=== PATIENT | male | born 1995 | race Caucasian/White ===

== ENCOUNTER 2024-09-22 06:36 | Inpatient (IN) | payer BC, OTHER ==
[~2024-09-22] VITALS: Ht 182.9 cm; Wt 68.0 kg
--- NOTE | 2024-09-22 06:59 | ED.PDOC ---
History of Present Illness HPI Comments 29-year-old male came to the ER stating that he has been having nausea vomiting for the past few days unable to tolerate any liquids or solid food. History of insulin dependent diabetes. He states that his pump has been not working for the past three days. Heart rate on arrival was 120 blood sugar 480. Other than diabetes a denies any other past medical history. Chief Complaint: Hyperglycemia Time Seen by MD: 06:55 Reviewed Notes: Nurses Notes, Medications, Allergies Allergies: Coded Allergies: Latex (Verified Allergy, Unknown, 09/22/24) Information Source: Patient Mode of Arrival: Wheelchair Severity: Moderate Timing: Days Duration: Since onset Past Medical History PAST MEDICAL HISTORY: DM Surgical History: Denies all surgeries Social History Smoker: Non-Smoker Alcohol: Denies ETOH Use Drugs: Denies Drug Use Constitutional: denies: chills, diaphoresis, fatigue, fever, malaise, sweats, weakness, others EENTM: denies: blurred vision, double vision, ear bleeding, ear discharge, ear drainage, ear pain, ear ringing, eye pain, eye redness, hearing loss, mouth pain, mouth swelling, nasal discharge, nose bleeding, nose congestion, nose pain, photophobia, tearing, throat pain, throat swelling, voice changes, others Cardiovascular: denies: chest pain, dizzy spells, diaphoresis, Dyspnea on exertion, edema, irregular heart beat, left arm pain, lightheadedness, palpitations, PND, syncope, others Gastrointestinal: reports: nausea, vomiting; denies: abdomen distended, abdominal pain, blood streaked bowels, constipated, diarrhea, dysphagia, difficulty swallowing, hematemesis, melena, poor appetite, poor fluid intake, rectal bleeding, rectal pain, others Genitourinary: denies: burning, dysuria, flank pain, frequency, hematuria, incontinence, penile discharge, penile sore, pain, testicle pain, testicle swelling, urgency, others Neurological: denies: dizziness, fainting, headache, left sided numbness, left sided weakness, numbness, paresthesia, pre-existing deficit, right sided numbness, right sided weakness, seizure, speech problems, tingling, tremors, weakness, others Musculoskeletal: denies: back pain, gout, joint pain, joint swelling, muscle pain, muscle stiffness, neck pain, others Integumetry: denies: bruises, change in color, change in hair/nails, dryness, laceration, lesions, lumps, rash, wounds, others Allergic/Immunocompromised: denies: Difficulty Healing, Frequent Infections, Hives, Itching, others Hematologic/Lymphatic: denies: anemia, blood clots, easy bleeding, easy br uising, swollen glands, others Endocrine: denies: excessive hunger, excessive sweating, excessive thirst, excessive urination, flushing, intolerance to cold, intolerance to heat, unexplained weight gain, unexplained weight loss, others Psychiatric: denies: anxiety, bipolar disorder, depression, hopeless, panic disorder, schizophrenia, sleepless, suicidal, others Physical Exam General Appearance: Moderate Distress HEENT: Normal ENT Inspection, Pharynx Normal, TMs Normal Neck: Full Range of Motion, Non-Tender, Normal, Normal Inspection Respiratory: Chest Non-Tender, Lungs Clear, No Accessory Muscle Use, No Respiratory Distress, Normal Breath Sounds Cardiovascular: Tachycardia Breast Exam: Deferred Gastrointestinal: No Organomegaly, Non Tender, No Pulsatile Mass, Normal Bowel Sounds, Soft Genitalia: Deferred Pelvic: Deferred Rectal: Deferred Extremities: No calf tenderness, Normal capillary refill, Normal inspection, Normal range of motion, Non-tender, No pedal edema Musculoskeletal : Apperance: Normal 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 Was a procedure done?: No Differential Dx Considerations may include: DKA Electrolyte imbalance X-Ray, Labs, Meds, VS Vital Signs Date Time Temp Pulse Resp B/P (MAP) Pulse Ox O2 Delivery O2 Flow Rate FiO2 09/22/24 09:15 114 133/81 (98) 100 09/22/24 06:45 97.6 129 28 145/81 97 97.6 Lab Test 09/22/24 07:24 Range/Units White Blood Count 12.2 H 4.4-10.8 10^3/uL Red Blood Count 5.69 4.5-5.90 10^6/uL Hemoglobin 17.2 13.5-17.5 g/dL Hematocrit 51.8 41.0-53.0 % Mean Corpuscular Volume 90.9 80.0-100.0 fL Mean Corpuscular Hemoglobin 30.2 28.0-32.0 pg Mean Corpuscular Hemoglobin Concent 33.2 32.0-36.0 g/dL Red Cell Distribution Width 14.3 11.8-14.3 % Platelet Count 320 140-450 10^3/uL Mean Platelet Volume 9.0 6.9-10.8 fL Neutrophils (%) (Auto) 86.7 H 37.0-80.0 % Lymphocytes (%) (Auto) 7.9 L 10.0-50.0 % Monocytes (%) (Auto) 4.4 0.0-12.0 % Eosinophils (%) (Auto) 0.0 0.0-7.0 % Basophils (%) (Auto) 1.0 0.0-2.0 % Neutrophils # (Auto) 10.6 H 1.6-8.6 10 ^3/uL Lymphocytes # (Auto) 1.0 0.4-5.4 10 ^3/uL Monocytes # (Auto) 0.5 0-1.3 10 ^3/uL Eosinophils # (Auto) 0 0-0.8 10 ^3/uL Basophils # (Auto) 0.1 0-0.2 10 ^3/uL Nucleated Red Blood Cells 0.0 % Sodium Level 129 L 136-145 mmol/L Potassium Level 5.3 H 3.5-5.1 mmol/L Chloride Level 93 L 98-107 mmol/L Carbon Dioxide Level < 10 *L 20-31 mmol/L Anion Gap 26.74291 H 5-15 Blood Urea Nitrogen 22 9-23 mg/dL Creatinine 2.03 H 0.700-1.30 mg/dL Glomerular Filtration Rate Calc 45 >90 mL/min BUN/Creatinine Ratio 10.8 10.0-20.0 Serum Glucose 514 *H 74-106 mg/dL Serum Osmolality 331 H 278-298 mOsm/kg Calcium Level 9.5 8.7-10.4 mg/dL Phosphorus Level 5.1 2.4-5.1 mg/dL Magnesium Level 2.3 1.6-2.6 mg/dL Beta-Hydroxybutyric Acid > 4.500 H < 0.4 mmol/L Current Medications Medications (Trade) Dose Ordered Sig/Ramses Route Start Time Stop Time Status Last Admin Sodium Chloride 1,000 ml @ 1,000 mls/hr Q1H ONCE IV 09/22/24 07:00 09/22/24 07:59 DC 09/22/24 07:19 Sodium Chloride 1,000 ml @ 150 mls/hr Q6H40M ONCE IV 09/22/24 07:00 09/22/24 13:39 09/22/24 07:31 Insulin Human (Reg)/Sodium Chloride 100 ml @ 0.5 mls/hr Q24H IV 09/22/24 07:00 09/22/24 09:14 Diagnostic Test (Pha) (Accu-Chek Comfort Curve T) 1 strip Q90MIN 09/22/24 07:30 09/22/24 09:14 Insulin Glargine (Lantus) 15 units ONCE ONCE SC 09/22/24 07:00 09/22/24 07:01 DC 09/22/24 07:26 Ondansetron HCl (Zofran) 4 mg ONCE ONCE IV 09/22/24 07:00 09/22/24 07:01 DC 09/22/24 07:16 Patient alert. Tachycardic. Saturation pristine on room air. Possible DKA. Establish intravenous access. Was given fluids. Was given insulin. Explained to the family. Continue monitoring. Time of 1ST Reevaluation: 06:58 Reevaluation 1ST: Unchanged Patient Education/Counseling: Diagnosis, Treatment, Prognosis, Need For Follow Up Family Education/Counseling: Need For Follow Up SEPSIS Sepsis Screen Date sepsis recognized/suspect: Sep 22, 2024 Time Sepsis recognized/suspect: 0653 Recent Procedure: No On Antibiotic Therapy: No Respiratory Rate >20: No Heart Rate >90: Yes Temp<36 C (96.8 F) or >38.3 C: No SBP <90 or MAP <65 mmHG: No New Acute Mental Status Change: No Is the patient on CPAP, BIPAP,: No Physician Orders Sodium Chloride 0.9% (09/22/24 07:00) Insulin Drip Protocol (09/22/24 ) Sodium Chloride 0.9% (09/22/24 07:00) Sodium Chloride 0.9% (09/22/24 11:00) Sodium Chloride 0.9% (09/22/24 13:00) Insulin Drip 100 Unit/100ml (Myxredlin 1 (09/22/24 07:00) Dextrose 50% Syringe (09/22/24 07:00) Glucose Blood (Accu-Chek Comfort Curve T (09/22/24 07:30) Abg W/ Co-Ox (09/22/24 06:55) Basic Metabolic Panel (09/22/24 12:55) Basic Metabolic Panel (09/22/24 18:55) Basic Metabolic Panel (09/23/24 00:55) Urinalysis (09/22/24 06:55) Neurological Assessment (09/22/24 06:55) Vs/Hemodynamics .PER UNIT PROTOCOL (09/22/24 06:55) Insulin Lantus (Glargine) (Lantus) (09/23/24 10:00) Vital Signs Date Time Temp Pulse Resp B/P (MAP) Pulse Ox O2 Delivery O2 Flow Rate FiO2 09/22/24 09:15 114 133/81 (98) 100 09/22/24 06:45 97.6 129 28 145/81 97 97.6 Laboratory Tests Test 09/22/24 07:24 White Blood Count 12.2 10^3/uL (4.4-10.8) H Medications Medications Dose Ordered Sig/Ramses Route Start Time Stop Time Status Last Admin Dose Admin Diagnostic Test (Pha) 1 strip Q90MIN 09/22/24 07:30 09/22/24 09:14 Insulin Glargine 15 units ONCE ONCE SC 09/22/24 07:00 09/22/24 07:01 DC 09/22/24 07:26 Insulin Human (Reg)/Sodium Chloride 100 ml @ 0.5 mls/hr Q24H IV 09/22/24 07:00 09/22/24 09:14 Ondansetron HCl 4 mg ONCE ONCE IV 09/22/24 07:00 09/22/24 07:01 DC 09/22/24 07:16 Sodium Chloride 1,000 ml @ 150 mls/hr Q6H40M ONCE IV 09/22/24 07:00 09/22/24 13:39 09/22/24 07:31 Sodium Chloride 1,000 ml @ 1,000 mls/hr Q1H ONCE IV 09/22/24 07:00 09/22/24 07:59 DC 09/22/24 07:19 Departure 1 Departure Time of Disposition: 06:59 Impression: Primary Impression: DKA (diabetic ketoacidosis) Qualified Codes: E13.10 - Other specified diabetes mellitus with ketoacidosis without coma Disposition: ADMITTED INPATIENT Admit to: Med Surg Condition: Guarded Critical Care Note Critical Care Time?: Yes (90 min-critical care time only) Stability Stability form required: No Heart Score Heart Score: Heart Score Response (Comments) Value History N/A 0 EKG N/A 0 Age N/A 0 Risk Factors N/A 0 Troponin N/A 0 Total 0 UZAIR ADAME MD Sep 22, 2024 06:59
[2024-09-22] MEDS ORDERED: DEXTROSE (50%) 50ML SYRG IV PRN ×2 (07:00→21:30)
[2024-09-22] MEDS: ONDANSETRON HCL 4 MG/2 ML VIAL IV ONE (07:16)
[2024-09-22] MEDS: SODIUM CHLORIDE 0.9% 1,000 ML IV ONE ×3 (07:19→14:32)
[2024-09-22] MEDS: INSULIN LANTUS (GLARGINE) 1 /0.01ml (100units/ml) SC ONE (07:26)
[2024-09-22] MEDS: ACCU-CHEK COMFORT CURVE STRIP VI SCH (07:30)
[2024-09-22 07:35] LABS: Hematocrit 51.8 % (41.0-53.0); Hemoglobin 17.2 g/dL (13.5-17.5); Mean Corpuscular Hemoglobin 30.2 pg (28.0-32.0); Mean Corpuscular Volume 90.9 fL (80.0-100.0); Nucleated Red Blood Cells % 0.0 %
[2024-09-22 07:45] LABS: Anion Gap 26.00001 (5-15)
[2024-09-22 07:46] LABS: Calcium 9.5 mg/dL (8.7-10.4)
[2024-09-22 07:51] LABS: BUN/Creatinine Ratio 10.8 (10.0-20.0); Blood Urea Nitrogen 22 mg/dL (9-23); Chloride 93 mmol/L (98-107); Magnesium 2.3 mg/dL (1.6-2.6); Potassium 5.3 mmol/L (3.5-5.1); Sodium 129 mmol/L (136-145)
[2024-09-22 07:52] LABS: Carbon Dioxide < 10 mmol/L (20-31); Glucose 514 mg/dL (74-106)
[2024-09-22] MEDS: INSULIN DRIP 100 UNIT/100ML 100 ML IV SCH (09:14)
[2024-09-22] MEDS: SODIUM CHLORIDE 0.9% 1,000 ML IV SCH ×3 (09:54→13:00)
[2024-09-22] MEDS ORDERED: NITROGLYCERIN 0.4 MG SL TAB SL PRN (13:30)
[2024-09-22] MEDS ORDERED: MORPHINE SULFATE INJ 2 MG/ml SYRG IV PRN ×2 (13:30)
[2024-09-22] MEDS ORDERED: ACETAMINOPHEN 325 MG TAB PO PRN (13:30)
[2024-09-22] MEDS ORDERED: DOCUSATE SOD 100 MG CAP PO PRN (13:30)
[2024-09-22] MEDS ORDERED: HYDROcodone-ACET 5/325MG TAB PO PRN (13:30)
[2024-09-22] MEDS ORDERED: ONDANSETRON HCL 4 MG/2 ML VIAL IV PRN (13:30)
[2024-09-22 13:50] LABS: Chloride 101 mmol/L (98-107); Potassium 4.4 mmol/L (3.5-5.1)
[2024-09-22 13:51] LABS: Anion Gap 22.00001 (5-15); Calcium 8.7 mg/dL (8.7-10.4)
[2024-09-22 13:56] LABS: BUN/Creatinine Ratio 12.1 (10.0-20.0); Blood Urea Nitrogen 20 mg/dL (9-23)
[2024-09-22 13:57] LABS: Carbon Dioxide < 10 mmol/L (20-31); Glucose 227 mg/dL (74-106); Sodium 133 mmol/L (136-145)
--- NOTE | 2024-09-22 14:00 | DVHHP2 ---
History of Present Illness Reason for Visit: Hyperglycemia History of Present Illness Kiley Aceves JR is a 29-year-old male with past medical history of diabetes, who came to the hospital for hyperglycemia. Patient states for the last 3 days he has been having trouble with his insulin pump. He states he moved the site and woke up in the morning with it not working and his blood sugars elevated. He stated this has been happening for the last few days and that his blood sugars have not been well controlled. When completing my assessment he is O x 4, but drowsy and falls asleep while talking and is repetitive at times with answers. Endocrine: Diabetes Past Surgical History: None Smoke: <1 pack per day ([place]) ALCOHOL: occassional Drugs: Marijuana Lives: with Family Domestic Violence: Neg Review of Systems Constitutional: No: Fever, Chills, Sweats, Weakness, Malaise, Other Eyes: No: Pain, Vision change, Conjunctivae inflammation, Eyelid inflammation, Other, Redness ENT: No: Ear pain, Ear discharge, Nose pain, Nose discharge, Nose congestion, Mouth pain, Mouth swelling, Throat pain, Throat swelling, Other Respiratory: No: Cough, Dry, Shortness of breath, SOB with excertion, Wheezing, Hemoptysis, Pleuritic Pain, Sputum, Wheezing, Other Cardiovascular: No: Chest Pain, Palpitations, Orthopnea, Paroxysmal Noc. Dyspnea, Edema, Lt Headedness, Other Gastrointestinal: Nausea, Vomiting, Abdominal Pain; No: Diarrhea, Constipation, Melena, Hematochezia, Other Genitourinary: No Dysuria, No Frequency, No Incontinence, No Hematuria, No Retention, No Other Musculoskeletal: No: other, neck pain, shoulder pain, arm pain, back pain, hand pain, leg pain, foot pain Skin: No: Rash, Lesions, Jaundice, Bruising, Other Neurological: No: Weakness, Numbness, Incoordination, Change in speech, Confusion, Seizures, Other Allergies: Coded Allergies: Latex (Verified Allergy, Unknown, 09/22/24) Medications Current Medications Medications Dose Ordered Sig/Ramses Route Start Time Stop Time Status Last Admin Dose Admin Sodium Chloride 1,000 ml @ 150 mls/hr Q6H40M IV 09/22/24 13:00 Insulin Human (Reg)/Sodium Chloride 100 ml @ 0.5 mls/hr Q24H IV 09/22/24 07:00 09/22/24 09:14 6 MLS/HR Dextrose 50 ml UD PRN IV 09/22/24 07:00 Diagnostic Test (Pha) 1 strip Q90MIN 09/22/24 07:30 09/22/24 12:14 1 STRIP Insulin Glargine 15 units DAILY SC 09/23/24 10:00 Exam Vital Signs Vital Signs Date Time Temp Pulse Resp B/P (MAP) Pulse Ox O2 Delivery O2 Flow Rate FiO2 09/22/24 10:58 Room Air* 0 21 09/22/24 10:00 97.9 116 14 132/74 (93) 100 97.9 General Appearance: Oriented X3, Cooperative, moderate distress, Other (drowsy, slow to respond) HEENT: Atraumatic, PERRLA, Other (Mucous memebr dry) Respiratory: Clear to auscultation, Normal air movement Cardiovascular: Normal S1, Normal S2, Other (SR-ST) Abdominal: Normal bowel sounds, Soft, No tenderness Extremities: No clubbing, No cyanosis, No edema, Normal pulses Skin: No breakdown, No significant lesion Neuro: Normal gait, Normal speech, Strength at 5/5 X4 ext Psych/Mental Status: Mental status NL, Mood NL Labs/Xrays Labs Test 09/22/24 07:24 Range/Units White Blood Count 12.2 H 4.4-10.8 10^3/uL Red Blood Count 5.69 4.5-5.90 10^6/uL Hemoglobin 17.2 13.5-17.5 g/dL Hematocrit 51.8 41.0-53.0 % Mean Corpuscular Volume 90.9 80.0-100.0 fL Mean Corpuscular Hemoglobin 30.2 28.0-32.0 pg Mean Corpuscular Hemoglobin Concent 33.2 32.0-36.0 g/dL Red Cell Distribution Width 14.3 11.8-14.3 % Platelet Count 320 140-450 10^3/uL Mean Platelet Volume 9.0 6.9-10.8 fL Neutrophils (%) (Auto) 86.7 H 37.0-80.0 % Lymphocytes (%) (Auto) 7.9 L 10.0-50.0 % Monocytes (%) (Auto) 4.4 0.0-12.0 % Eosinophils (%) (Auto) 0.0 0.0-7.0 % Basophils (%) (Auto) 1.0 0.0-2.0 % Neutrophils # (Auto) 10.6 H 1.6-8.6 10 ^3/uL Lymphocytes # (Auto) 1.0 0.4-5.4 10 ^3/uL Monocytes # (Auto) 0.5 0-1.3 10 ^3/uL Eosinophils # (Auto) 0 0-0.8 10 ^3/uL Basophils # (Auto) 0.1 0-0.2 10 ^3/uL Nucleated Red Blood Cells 0.0 % Sodium Level 129 L 136-145 mmol/L Potassium Level 5.3 H 3.5-5.1 mmol/L Chloride Level 93 L 98-107 mmol/L Carbon Dioxide Level < 10 *L 20-31 mmol/L Anion Gap 26.29638 H 5-15 Blood Urea Nitrogen 22 9-23 mg/dL Creatinine 2.03 H 0.700-1.30 mg/dL Glomerular Filtration Rate Calc 45 >90 mL/min BUN/Creatinine Ratio 10.8 10.0-20.0 Serum Glucose 514 *H 74-106 mg/dL Serum Osmolality 331 H 278-298 mOsm/kg Calcium Level 9.5 8.7-10.4 mg/dL Phosphorus Level 5.1 2.4-5.1 mg/dL Magnesium Level 2.3 1.6-2.6 mg/dL Beta-Hydroxybutyric Acid > 4.500 H < 0.4 mmol/L SEPSIS Sepsis Screen Date sepsis recognized/suspect: Sep 22, 2024 Time Sepsis recognized/suspect: 0653 Recent Procedure: No On Antibiotic Therapy: No Respiratory Rate >20: No Heart Rate >90: Yes Temp<36 C (96.8 F) or >38.3 C: No SBP <90 or MAP <65 mmHG: No New Acute Mental Status Change: No Is the patient on CPAP, BIPAP,: No Physician Orders Sodium Chloride 0.9% (09/22/24 07:00) Insulin Drip Protocol (09/22/24 ) Sodium Chloride 0.9% (09/22/24 13:00) Insulin Drip 100 Unit/100ml (Myxredlin 1 (09/22/24 07:00) Dextrose 50% Syringe (09/22/24 07:00) Glucose Blood (Accu-Chek Comfort Curve T (09/22/24 07:30) Abg W/ Co-Ox (09/22/24 06:55) Basic Metabolic Panel (09/22/24 18:55) Basic Metabolic Panel (09/23/24 00:55) Urinalysis (09/22/24 06:55) Neurological Assessment (09/22/24 06:55) Vs/Hemodynamics .PER UNIT PROTOCOL (09/22/24 06:55) Insulin Lantus (Glargine) (Lantus) (09/23/24 10:00) Basic Metabolic Panel (09/22/24 12:24) Drug Screen (09/22/24 12:59) Vital Signs Date Time Temp Pulse Resp B/P (MAP) Pulse Ox O2 Delivery O2 Flow Rate FiO2 09/22/24 10:58 Room Air* 0 21 09/22/24 10:00 97.9 116 14 132/74 (93) 100 97.9 09/22/24 09:15 114 133/81 (98) 100 09/22/24 06:45 97.6 129 28 145/81 97 97.6 Laboratory Tests Test 09/22/24 07:24 White Blood Count 12.2 10^3/uL (4.4-10.8) H Medications Medications Dose Ordered Sig/Ramses Route Start Time Stop Time Status Last Admin Dose Admin Diagnostic Test (Pha) 1 strip Q90MIN 09/22/24 07:30 09/22/24 12:14 1 STRIP Insulin Glargine 15 units ONCE ONCE SC 09/22/24 07:00 09/22/24 07:01 DC 09/22/24 07:26 15 UNITS Insulin Human (Reg)/Sodium Chloride 100 ml @ 0.5 mls/hr Q24H IV 09/22/24 07:00 09/22/24 09:14 6 MLS/HR Ondansetron HCl 4 mg ONCE ONCE IV 09/22/24 07:00 09/22/24 07:01 DC 09/22/24 07:16 4 MG Sodium Chloride 1,000 ml @ 150 mls/hr Q6H40M ONCE IV 09/22/24 07:00 09/22/24 13:39 09/22/24 07:31 150 MLS/HR Sodium Chloride 1,000 ml @ 250 mls/hr Q4H IV 09/22/24 11:00 09/22/24 12:59 DC 09/22/24 11:03 250 MLS/HR Sodium Chloride 1,000 ml @ 500 mls/hr Q2H IV 09/22/24 07:00 09/22/24 10:59 DC 09/22/24 09:55 500 MLS/HR Sodium Chloride 1,000 ml @ 1,000 mls/hr Q1H ONCE IV 09/22/24 07:00 09/22/24 07:59 DC 09/22/24 07:19 1,000 MLS/HR Assessment/Plan Assessment/Plan Assessment: DKA (diabetic ketoacidosis), Acute kidney injury, Leukocytosis, Metabolic acidosis, Uncontrolled diabetes, Plan: Admit to ICU, IV insulin drip, IV hydration, UA, UDS, Manage/Monitor electrolytes closely, BMP Q 6 hours, A1c, Plan discussed with: Patient My Orders Orders - MIRIAM URRUTIA Procedure Category Date Status Time Basic Metabolic Panel LAB 09/22/24 Logged 12:24 Drug Screen LAB 09/22/24 Logged 12:59 Date of Service: Sep 22, 2024 Billing Provider: MIRIAM URRUTIA Common Visit Codes: [id number] INP/OBS CARE (MOD) MIRIAM URRUTIA Sep 22, 2024 14:00
[2024-09-22] MEDS: D5W/SOD CHL 0.45%/KCL 20MEQ 1,000 ML IV SCH (14:32)
[2024-09-22 14:58] LABS: Cannabinoid Screen, Urine Neg (NEGATIVE); Urine Protein, UAD 1+ (Negative)
[2024-09-22 14:59] LABS: Amphetamine Screen, Urine Neg (NEGATIVE); Barbiturate Scree,Urine Neg (NEGATIVE); Benzodiazephine Screen, Urine Neg (NEGATIVE); Cocaine Screen, Urine Neg (NEGATIVE); Opiate Scree,Urine Neg (NEGATIVE); Phencyclidine Screen, Urine Neg (NEGATIVE)
--- NOTE | 2024-09-22 16:01 | ECG ---
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
[2024-09-22 19:30] VITALS: PULSE 88; RESP 13; O2SAT 98
[2024-09-22 19:36] LABS: Chloride 105 mmol/L (98-107); Potassium 4.4 mmol/L (3.5-5.1)
[2024-09-22 19:37] LABS: Anion Gap 10 (5-15)
[2024-09-22 19:42] LABS: BUN/Creatinine Ratio 11.1 (10.0-20.0); Blood Urea Nitrogen 17 mg/dL (9-23)
[2024-09-22 19:43] LABS: Calcium 8.5 mg/dL (8.7-10.4); Carbon Dioxide 19 mmol/L (20-31); Glucose 183 mg/dL (74-106); Sodium 134 mmol/L (136-145)
[2024-09-23] VITALS (7 sets, daily range): BP systolic 97–110; BP diastolic 56–72; PULSE 83–91; RESP 16–18; TEMP 97.3–98.8; O2SAT 95–100
[2024-09-23] MEDS ORDERED: INSLISPI (00:39)
[2024-09-23] MEDS: ACCU-CHEK COMFORT CURVE STRIP VI SCH (00:48)
[2024-09-23] MEDS: InsuLIN REG 1unit/0.01ml Soln (100units/ml) SC SCH (00:49)
[2024-09-23 04:42] LABS: Hematocrit 41.9 % (41.0-53.0); Hemoglobin 14.4 g/dL (13.5-17.5); Mean Corpuscular Hemoglobin 30.2 pg (28.0-32.0); Mean Corpuscular Volume 88.0 fL (80.0-100.0); Nucleated Red Blood Cells % 0.1 %
[2024-09-23 05:03] LABS: Alanine Aminotransferase 18 U/L (7-40); Albumin 4.0 g/dL (3.2-4.8); Alkaline Phosphatase 58 U/L (46-116); Anion Gap 14 (5-15); BUN/Creatinine Ratio 12.5 (10.0-20.0); Blood Urea Nitrogen 16 mg/dL (9-23); Chloride 104 mmol/L (98-107); Potassium 4.2 mmol/L (3.5-5.1); Total Protein 5.8 g/dL (5.7-8.2)
[2024-09-23 05:04] LABS: Bilirubin, Total 0.7 mg/dL (0.2-1.0)
[2024-09-23 05:06] LABS: Calcium 8.6 mg/dL (8.7-10.4); Carbon Dioxide 16 mmol/L (20-31); Glucose 231 mg/dL (74-106); Sodium 134 mmol/L (136-145)
[2024-09-23] MEDS ORDERED: INSULIN LANTUS (GLARGINE) 1 /0.01ml (100units/ml) SC SCH (10:00)
[2024-09-23 16:25] LABS: Chloride 103 mmol/L (98-107); Potassium 3.6 mmol/L (3.5-5.1); Sodium 136 mmol/L (136-145)
[2024-09-23 16:26] LABS: Anion Gap 8 (5-15); Calcium 8.7 mg/dL (8.7-10.4); Carbon Dioxide 25 mmol/L (20-31)
[2024-09-23 16:31] LABS: BUN/Creatinine Ratio 9.6 (10.0-20.0); Blood Urea Nitrogen 11 mg/dL (9-23); Glucose 228 mg/dL (74-106)
--- NOTE | 2024-09-23 16:42 | DVHPN2 ---
Subjective Patient is seen and evaluated chart is reviewed and discussed with the patient at bedside. Patient's insulin pump is off. He has been admitted for DKA appears to have resolved. Changes from previous H/P or p: No Changes Eyes: No Pain, No Vision change, No Conjunctivae inflammation, No Eyelid inflammation, No Other, No Redness ENT: No Ear pain, No Ear discharge, No Nose pain, No Nose discharge, No Nose congestion, No Mouth pain, No Mouth swelling, No Throat pain, No Throat swelling, No Other Cardiovascular: No Chest Pain, No Palpitations, No Orthopnea, No Paroxysmal Noc. Dyspnea, No Edema, No Lt Headedness, No Other Respiratory: No Cough, No Dry, No Shortness of breath, No SOB with excertion, No Wheezing, No Hemoptysis, No Pleuritic Pain, No Sputum, No Other Gastrointestinal: Nausea, Vomiting, Abdominal Pain; No Diarrhea, No Constipation, No Melena, No Hematochezia, No Other Genitourinary: No Dysuria, No Frequency, No Incontinence, No Hematuria, No Retention, No Other Musculoskeletal: No other, No neck pain, No shoulder pain, No arm pain, No back pain, No hand pain, No leg pain, No foot pain Skin: No Rash, No Lesions, No Jaundice, No Bruising, No Other Objective Vitals Vital Signs Date Time Temp Pulse Resp B/P (MAP) Pulse Ox O2 Delivery O2 Flow Rate FiO2 09/23/24 13:00 97.3 89 16 110/72 (85) 100 97.3 09/23/24 00:32 Room Air* 0 21 Intake/Output Intake and Output 09/23/24 07:00 Intake Total 730 ml Balance 730 ml Intake Oral 400 ml IV Total 330 ml # Voids 1 General Appearance: Alert, Oriented X3, Cooperative HEENT: PERRLA, EOMI Lungs: Clear to auscultation, Normal air movement Cardiovascular: Regular rate, Normal S1, Normal S2, No murmurs Abdomen: Normal bowel sounds, Soft, No tenderness Extremities: No clubbing, No cyanosis, No edema, Normal pulses Medications Current Medications Medications Dose Ordered Sig/Ramses Route Start Time Stop Time Status Last Admin Dose Admin Acetaminophen/ Hydrocodone Bitart 1 tab Q4HP PRN PO 09/22/24 13:30 Ondansetron HCl 4 mg Q4HP PRN IV 09/22/24 13:30 Docusate Sodium 100 mg BIDPRN PRN PO 09/22/24 13:30 Acetaminophen 650 mg Q6HP PRN PO 09/22/24 13:30 Morphine Sulfate 2 mg Q4HPRN PRN IV 09/22/24 13:30 Nitroglycerin 0.4 mg Q5MINP PRN SL 09/22/24 13:30 Morphine Sulfate 2 mg Q30M PRN IV 09/22/24 13:30 Potassium Chloride/Dextrose/ Sod Cl 1,000 ml @ 120 mls/hr Q8H20M IV 09/22/24 14:00 09/23/24 15:34 120 MLS/HR Diagnostic Test (Pha) 1 strip IQ4HR 09/23/24 00:00 09/23/24 12:00 1 STRIP Insulin Human Regular IQ4HR SC 09/23/24 00:00 09/23/24 12:00 6 UNITS Dextrose 50 ml UD PRN IV 09/22/24 21:30 Insulin Glargine 16 units HS SC 09/23/24 22:00 Laboratory Results Laboratory Tests 09/23/24 04:04 09/23/24 15:50 Chemistry Test 09/22/24 18:57 09/23/24 04:04 09/23/24 15:50 Calcium Level 8.5 mg/dL (8.7-10.4) L 8.6 mg/dL (8.7-10.4) L 8.7 mg/dL (8.7-10.4) Albumin 4.0 g/dL (3.2-4.8) Total Protein 5.8 g/dL (5.7-8.2) LFT Test 09/23/24 04:04 Alanine Aminotransferase (ALT) 18 U/L (7-40) Alkaline Phosphatase 58 U/L (46-116) Aspartate Amino Transferase (AST) 16 U/L (13-40) Total Bilirubin 0.7 mg/dL (0.2-1.0) Urinalysis Test 09/22/24 13:00 Urine Color Light-yellow (Yellow) Urine Clarity Clear (Clear) Urine pH 5.0 (5.0-9.0) Urine Specific [place] 1.019 (1.001-1.035) Urine Protein 1+ (Negative) H Urine Ketones 4+ (Negative) H Urine Blood 1+ /uL (Negative) H Urine Nitrite Negative (Negative) Urine Bilirubin Negative (Negative) Urine Urobilinogen Normal mg/dL (Negative) Urine Leukocyte Esterase Negative /uL (Negative) Urine RBC <1 /hpf (0 - 3) Urine Microscopic WBC < 1 /HPF (0-3) Urine Squamous Epithelial Cells None seen /hpf (<5) Urine Bacteria None seen /hpf (None Seen) Urine Mucus Few (None Seen) Urine Glucose 4+ mg/dL (Normal) H Assessment/Plan Assessment/Plan I will repeat another BMP soon. If anion gap continued to be closed and DKA is resolved we will continue with the long-acting insulin as well as sliding scale insulin. We will DC the insulin drip. 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 Meantime continue present management. Further clinical management per clinical course. Plan discussed with: Patient, Other My Orders Orders - ZENOBIA SIMS MD Procedure Category Date Status Time Insulin Lantus PHA 09/23/24 In Process (Glargine) (Lantus) 22:00 Basic Metabolic Panel LAB 09/24/24 Verified 04:00 Magnesium LAB 09/24/24 Verified 04:00 Problem List: (1) DKA (diabetic ketoacidosis) Date of Service: Sep 23, 2024 Billing Provider: ZENOBIA SIMS MD Common Visit Codes: [id number] INP/OBS CARE(MOD) ZENOBIA SIMS MD Sep 23, 2024 16:42
[2024-09-23] MEDS: INSULIN LANTUS (GLARGINE) 1 /0.01ml (100units/ml) SC SCH (21:35)
[2024-09-24 01:00] VITALS: BP 106/74; PULSE 76; RESP 18; TEMP 97.7; O2SAT 99
[2024-09-24 05:00] VITALS: BP 99/59; PULSE 80; RESP 17; TEMP 97.4; O2SAT 98
[2024-09-24 07:42] VITALS: PULSE 88
[2024-09-24 08:07] LABS: Anion Gap 8 (5-15); Carbon Dioxide 29 mmol/L (20-31); Chloride 105 mmol/L (98-107); Sodium 142 mmol/L (136-145)
[2024-09-24 08:08] LABS: Calcium 8.7 mg/dL (8.7-10.4)
[2024-09-24 08:13] LABS: BUN/Creatinine Ratio 12.5 (10.0-20.0); Blood Urea Nitrogen 11 mg/dL (9-23); Magnesium 1.9 mg/dL (1.6-2.6)
[2024-09-24 08:22] LABS: Potassium 2.8 mmol/L (3.5-5.1)
[2024-09-24 08:25] LABS: Glucose 43 mg/dL (74-106)
[2024-09-24 09:00] VITALS: BP 104/63; PULSE 80; RESP 16; TEMP 97.6; O2SAT 100
[2024-09-24] MEDS ORDERED: DEXTROSE (50%) 50ML SYRG IV PRN (09:00)
[2024-09-24] MEDS: POTASSIUM EFFERVESENT TAB 25 MEQ PO ONE (10:07)
[2024-09-24] MEDS: ACCU-CHEK COMFORT CURVE STRIP VI SCH (11:30)
[2024-09-24] MEDS: POTASSIUM CHLORIDE 40 MEQ, LIDOCAINE 1% (LOCAL ANESTH.) 4 ML in SODIUM CHL 0.9% 250 ML IV ONE (11:34)
[2024-09-24] MEDS: InsuLIN REG 1unit/0.01ml Soln (100units/ml) SC SCH (12:05)
[2024-09-24 13:00] VITALS: BP 103/62; PULSE 79; RESP 16; TEMP 97.7; O2SAT 99
[2024-09-24] MEDS ORDERED: INSUINJ37 SC (14:11)
[2024-09-24] MEDS ORDERED: INSREGI SC (14:11)
--- NOTE | 2024-09-24 14:14 | DVHDS2 ---
Discharge Summary Date of Admission Sep 22, 2024 at 13:23 Date of Discharge: Sep 24, 2024 Labs/Diagnostic Data: Laboratory Results Test 09/24/24 09:10 09/24/24 06:56 09/23/24 04:04 09/22/24 13:00 POC Glucose 194 mg/dl (70-106) Sodium Level 142 mmol/L (136-145) Potassium Level 2.8 mmol/L (3.5-5.1) Chloride Level 105 mmol/L (98-107) Carbon Dioxide Level 29 mmol/L (20-31) Anion Gap 8 (5-15) Blood Urea Nitrogen 11 mg/dL (9-23) Creatinine 0.88 mg/dL (0.700-1.30) Glomerular Filtration Rate Calc 120 mL/min (>90) BUN/Creatinine Ratio 12.5 (10.0-20.0) Serum Glucose 43 mg/dL (74-106) Calcium Level 8.7 mg/dL (8.7-10.4) Magnesium Level 1.9 mg/dL (1.6-2.6) White Blood Count 8.7 10^3/uL (4.4-10.8) Red Blood Count 4.76 10^6/uL (4.5-5.90) Hemoglobin 14.4 g/dL (13.5-17.5) Hematocrit 41.9 % (41.0-53.0) Mean Corpuscular Volume 88.0 fL (80.0-100.0) Mean Corpuscular Hemoglobin 30.2 pg (28.0-32.0) Mean Corpuscular Hemoglobin Concent 34.3 g/dL (32.0-36.0) Red Cell Distribution Width 13.9 % (11.8-14.3) Platelet Count 215 10^3/uL (140-450) Mean Platelet Volume 8.2 fL (6.9-10.8) Neutrophils (%) (Auto) 80.1 % (37.0-80.0) Lymphocytes (%) (Auto) 13.5 % (10.0-50.0) Monocytes (%) (Auto) 6.0 % (0.0-12.0) Eosinophils (%) (Auto) 0.1 % (0.0-7.0) Basophils (%) (Auto) 0.3 % (0.0-2.0) Neutrophils # (Auto) 6.9 10 ^3/uL (1.6-8.6) Lymphocytes # (Auto) 1.2 10 ^3/uL (0.4-5.4) Monocytes # (Auto) 0.5 10 ^3/uL (0-1.3) Eosinophils # (Auto) 0 10 ^3/uL (0-0.8) Basophils # (Auto) 0 10 ^3/uL (0-0.2) Nucleated Red Blood Cells 0.1 % Total Bilirubin 0.7 mg/dL (0.2-1.0) Aspartate Amino Transferase (AST) 16 U/L (13-40) Alanine Aminotransferase (ALT) 18 U/L (7-40) Alkaline Phosphatase 58 U/L (46-116) Total Protein 5.8 g/dL (5.7-8.2) Albumin 4.0 g/dL (3.2-4.8) Beta-Hydroxybutyric Acid 2.958 mmol/L (< 0.4) Urine Color Light-yellow (Yellow) Urine Clarity Clear (Clear) Urine pH 5.0 (5.0-9.0) Urine Specific [place] 1.019 (1.001-1.035) Urine Protein 1+ (Negative) Urine Ketones 4+ (Negative) Urine Blood 1+ /uL (Negative) Urine Nitrite Negative (Negative) Urine Bilirubin Negative (Negative) Urine Urobilinogen Normal mg/dL (Negative) Urine Leukocyte Esterase Negative /uL (Negative) Urine RBC <1 /hpf (0 - 3) Urine Microscopic WBC < 1 /HPF (0-3) Urine Squamous Epithelial Cells None seen /hpf (<5) Urine Bacteria None seen /hpf (None Seen) Urine Mucus Few (None Seen) Urine Glucose 4+ mg/dL (Normal) Urine Opiates Screen Neg (NEGATIVE) Urine Fentanyl Screen Neg (NEGATIVE) Urine Barbiturates Screen Neg (NEGATIVE) Urine Phencyclidine Screen Neg (NEGATIVE) Urine Amphetamines Screen Neg (NEGATIVE) Urine Benzodiazepines Screen Neg (NEGATIVE) Urine Cocaine Screen Neg (NEGATIVE) Urine Cannabinoids Screen Neg (NEGATIVE) Test 09/22/24 07:24 Hemoglobin A1c > 14.0 % A1C (<5.7) Serum Osmolality 331 mOsm/kg (278-298) Phosphorus Level 5.1 mg/dL (2.4-5.1) Beta HCG, Quantitative 0.2 mIU/mL (0-2) Other Laboratory Tests 09/24/24 06:56 09/23/24 04:04 Brief Hx & Hospital Course: Kiley Aceves JR is a 29-year-old male with past medical history of diabetes, who came to the hospital for hyperglycemia. Patient states for the last 3 days he has been having trouble with his insulin pump. He states he moved the site and woke up in the morning with it not working and his blood sugars elevated. He stated this has been happening for the last few days and that his blood sugars have not been well controlled. When completing my assessment he is O x 4, but drowsy and falls asleep while talking and is repetitive at times with answers. He is admitted and started on insulin drip for his DKA. Subsequently he has DKA has resolved. He is transitioned to long-acting insulin with the Lantus as well as sliding scale insulin with regular insulin. Blood sugars have been stabilized. His electrolytes have been corrected. He is tolerating his diet. Feeling better back to baseline normal status. Therefore it is felt he could be safely discharged home. However I have talked with the patient regarding his insulin pump issues and advised to follow up with the engineer to fix the pump. Meantime he is advised to completely stop the insulin pump and take Lantus and sliding scale insulin as prescribed till his insulin pump is back to working order. Patient verbalized understanding of this, verbalized understanding his hospital diagnosis, treatment he received, discharge medications, discharge instructions and agree with follow-up plan of care as outlined. Condition at Discharge: Stable Final Diagnosis/Problems List Diabetic ketoacidosis resolved, diabetes mellitus type 2 insulin dependent, electrolyte abnormalities corrected Discharge Disposition: Home Discharge Instruct/Medications Diet: Consistent carbohydrate, Cardiac 2g Na,low cholest Activity: No Restrictions, As Tolerated Follow Up/Referral: Your engineer next week and [place] to check your insulin pump and further manage your diabetes as appropriate. Medications: Take Lantus and regular sliding scale insulin as prescribed till your insulin pump is back to working status. Scheduled Insulin Glargine (Lantus Solostar), 10 UNIT SC QPM Insulin Regular (Human) (Novolin R), 0 UNITS SC AC Discontinued Medications Insulin Lispro (Human) (Humalog), (Reported) Discharge Statement: "Patient was advised to return to the ER or call 911 if any headaches, dizziness, shortness of breath, chest pain, abdominal pain, bleeding, fevers, or worsening of medical condition. Patient was counseled about treatment plan, medications, possible side effects, patientverbalized understanding. All questions were answered to the best of my ability. This discharge took greater then 30 minutes in planning, reviewing documentation, counseling the patient, and discussing with other team members." ASSESSMENT ASSESSMENT Assessment Diabetic ketoacidosis resolved, diabetes mellitus type 2 insulin dependent, electrolyte abnormalities corrected Date of Service: Sep 24, 2024 Billing Provider: ZENOBIA SIMS MD Common Visit Codes: 58990-ELE/OBS DISCH DAY <30MIN ZENOBIA SIMS MD Sep 24, 2024 14:14
[2024-09-24] MEDS: InsuLIN REG 1unit/0.01ml Soln (100units/ml) SC ONE (15:09)
[2024-09-24 15:40] LABS: Chloride 104 mmol/L (98-107); Potassium 4.2 mmol/L (3.5-5.1); Sodium 138 mmol/L (136-145)
[2024-09-24 15:41] LABS: Anion Gap 5 (5-15); Carbon Dioxide 29 mmol/L (20-31)
[2024-09-24 15:42] LABS: Calcium 8.8 mg/dL (8.7-10.4)
[2024-09-24 15:47] LABS: BUN/Creatinine Ratio 14.1 (10.0-20.0); Blood Urea Nitrogen 11 mg/dL (9-23); Glucose 309 mg/dL (74-106); Magnesium 1.8 mg/dL (1.6-2.6)
[2024-09-24 16:49] VITALS: BP 101/66; PULSE 92; RESP 18; TEMP 98.2; O2SAT 98
[2024-09-24] MEDS ORDERED: INSULIN LANTUS (GLARGINE) 1 /0.01ml (100units/ml) SC SCH (22:00)
== END 2024-09-24 16:45 | disposition home or self-care (01) | DRG 638 ==
LOC: ER 06:36 → OVERFLOW 13:23 → TELE-WESTW 09-23 22:03
PROVIDERS: ADMIT Hospitalist; ATTEND Hospitalist
DX: E11.10 Type 2 diabetes mellitus with ketoacidosis without coma (principal); N17.9 Acute kidney failure, unspecified; D72.829 Elevated white blood cell count, unspecified; Z87.891 Personal history of nicotine dependence; Z79.4 Long term (current) use of insulin; Z91.040 Latex allergy status
CPT/HCPCS: 36415; 80048; 80053; 80307; 81001; 82010; 82962; 83036; 83735; 83930; 84100; 84702; 85025; 93005; 96361; 96372; 99291; 99292; G0378; J1815; J2003; J2405